=== PATIENT | female | born 1995 | race American Indian/Alaskan Native ===

== ENCOUNTER 2018-07-05 22:39 | Emergency (ER) | payer OTHER ==
[2018-07-05 23:53] LABS: BUN/Creatinine Ratio 19; Basophils # (Auto) 0.1 K/mm3 (0.0-0.1); Blood Urea Nitrogen 13 mg/dL (7-17); Calcium 9.5 mg/dL (8.4-10.2); Eosinophils # (Auto) 0.1 K/mm3 (0.0-0.4); Eosinophils % (Auto) 1.1 % (0.0-4.3); Hematocrit 41.7 % (30.3-42.9); Hemoglobin 14.2 gm/dl (10.1-14.3); Hemolysis Index 25; Lymphocytes % (Auto) 42.3 % (13.4-35.0); Mean Corpuscular HGB Conc 34 % (30-34); Mean Corpuscular Volume 92 fl (79-97); Monocytes # (Auto) 1.1 K/mm3 (0.0-0.8); Monocytes % (Auto) 11.6 % (0.0-7.3); Red Blood Count 4.52 M/mm3 (3.65-5.03); Red Cell Distribution Width 13.9 % (13.2-15.2)
[2018-07-05 23:57] LABS: Bilirubin,Urine NEG (Negative); Blood,Urine SM (Negative); Color,Urine Yellow (Yellow); Mucus,Urine 3+ /HPF; Urobilinogen,Urine < 2.0 mg/dL (<2.0)
[2018-07-06 00:06] LABS: Basophils % (Auto) 0.8 % (0.0-1.8)
[2018-07-06] MEDS ORDERED: NACL 0.9% 1000 ML 1,000 ML IV ONE (00:20)
[2018-07-06] MEDS ORDERED: ZOFRAN IV ONE (00:20)
[2018-07-06] MEDS ORDERED: TORADOL IV ONE (00:20)
--- NOTE | 2018-07-06 00:24 | Emergency Department Report ---
ED Abdominal Pain HPI - General Chief Complaint: Abdominal Pain Stated Complaint: BACK PAIN LOWER RIGHT ABD PAIN NAUSEA Time Seen by Provider: 07/05/18 23:56 Source: family Mode of arrival: Ambulatory Limitations: No Limitations - History of Present Illness Initial Comments: Patient is admitted history of kidney stones who presents for right flank pain 3 days of dysuria and nausea with urinary hesitation there is no fever chills patient denies hematuria no vaginal discharge at this time Guillermo lorenz. Was 06/09/2018 Complaint: abdominal pain, flank pain Onset/Timin -: week(s) Location: R flank Radiation: R flank Migration to: R flank (I) Severity scale (0 -10): 8 Quality: aching Consistency: constant Improves With: nothing Worsens With: other (v isoiding ) Associated Symptoms: nausea ( as follows counters ) - Related Data LMP (females 10-50): 3 weeks Previous Rx's Medication Instructions Recorded Last Taken Type Ciprofloxacin HCl [Cipro] 500 mg PO BID 10 Days #20 tablet 07/06/18 Unknown Rx Tamsulosin HCl [Flomax] 0.4 mg PO DAILY #30 capsule 07/06/18 Unknown Rx Tramadol HCl [Ultram] 50 mg PO Q6H PRN #12 tablet 07/06/18 Unknown Rx Allergies Allergy/AdvReac Type Severity Reaction Status Date / Time No Known Allergies Allergy Unverified 07/05/18 22:57 ED Review of Systems ROS: Stated complaint: BACK PAIN LOWER RIGHT ABD PAIN NAUSEA Other details as noted in HPI Constitutional: denies: chills, fever Eyes: denies: eye pain, eye discharge, vision change ENT: denies: ear pain, throat pain Respiratory: denies: cough, shortness of breath, wheezing Cardiovascular: denies: chest pain, palpitations Endocrine: no symptoms reported Gastrointestinal: denies: abdominal pain, nausea, diarrhea Genitourinary: dysuria (on the left), frequency. denies: urgency, hematuria, discharge Musculoskeletal: back pain. denies: joint swelling, arthralgia Skin: denies: rash, lesions Neurological: as per HPI. denies: headache, weakness, paresthesias Psychiatric: denies: anxiety, depression Hematological/Lymphatic: denies: easy bleeding, easy bruising ED Past Medical Hx - Past Medical History Hx Kidney Stones: Yes Additional medical history: Ovarian Cyst - Surgical History Past Surgical History?: Yes Additional Surgical History: Ovarian cyst - Social History Smoking Status: Never Smoker Substance Use Type: Marijuana - Medications Home Medications: Home Medications Medication Instructions Recorded Confirmed Last Taken Type Ciprofloxacin HCl [Cipro] 500 mg PO BID 10 Days #20 tablet 07/06/18 Unknown Rx Tamsulosin HCl [Flomax] 0.4 mg PO DAILY #30 capsule 07/06/18 Unknown Rx Tramadol HCl [Ultram] 50 mg PO Q6H PRN #12 tablet 07/06/18 Unknown Rx ED Physical Exam - General Limitations: No Limitations (floor is) General appearance: alert, in no apparent distress - Head Head exam: Present: atraumatic, normocephalic - Eye Eye exam: Present: normal appearance, PERRL, EOMI Pupils: Present: normal accommodation - ENT ENT exam: Present: mucous membranes moist - Neck Neck exam: Present: normal inspection, full ROM - Respiratory Respiratory exam: Present: normal lung sounds bilaterally ( N). Absent: respiratory distress, wheezes, stridor - Cardiovascular Cardiovascular Exam: Present: regular rate ( is), normal rhythm, normal heart sounds. Absent: systolic murmur, diastolic murmur, rubs, gallop - GI/Abdominal GI/Abdominal exam: Present: soft, normal bowel sounds. Absent: tenderness, rebound, bruit, hernia - Rectal Rectal exam: Present: deferred - Extremities Exam Extremities exam: Present: normal inspection (is really ) ED Course Vital Signs 07/05/18 07/05/18 22:48 22:58 Temperature 98.0 F 98 F Pulse Rate 67 68 Respiratory 18 18 Rate Blood Pressure 121/75 121/75 O2 Sat by Pulse 98 99 Oximetry ED Medical Decision Making - Lab Data Result diagrams: 07/05/18 23:19 07/05/18 23:19 Labs 07/05/18 07/05/18 07/05/18 23:12 23:19 23:19 WBC 9.4 RBC 4.52 Hgb 14.2 Hct 41.7 MCV 92 MCH 31 MCHC 34 RDW 13.9 Plt Count 180 Lymph % (Auto) 42.3 H Towns % (Auto) 11.6 H Eos % (Auto) 1.1 Baso % (Auto) 0.8 Lymph # 4.0 Towns # 1.1 H Eos # 0.1 Baso # 0.1 Seg Neutrophils % 44.2 Seg Neutrophils # 4.1 Sodium 136 L Potassium 4.2 Chloride 97.2 L Carbon Dioxide 25 Anion Gap 18 BUN 13 Creatinine 0.7 Estimated GFR > 60 BUN/Creatinine Ratio 19 Glucose 84 Calcium 9.5 HCG, Qual Urine Color Yellow Urine Turbidity Slightly-cloudy Urine pH 5.0 Ur Specific [place] 1.035 H Urine Protein 30 mg/dl Urine Glucose (UA) Neg Urine Ketones 20 Urine Blood Sm Urine Nitrite Neg Urine Bilirubin Neg Urine Urobilinogen < 2.0 Ur Leukocyte Esterase Tr Urine WBC (Auto) 1.0 Urine RBC (Auto) 47.0 U Epithel Cells (Auto) 21.0 H Urine Mucus 3+ 07/06/18 00:27 WBC RBC Hgb Hct MCV MCH MCHC RDW Plt Count Lymph % (Auto) Towns % (Auto) Eos % (Auto) Baso % (Auto) Lymph # Towns # Eos # Baso # Seg Neutrophils % Seg Neutrophils # Sodium Potassium Chloride Carbon Dioxide Anion Gap BUN Creatinine Estimated GFR BUN/Creatinine Ratio Glucose Calcium HCG, Qual Negative Urine Color Urine Turbidity Urine pH Ur Specific [place] Urine Protein Urine Glucose (UA) Urine Ketones Urine Blood Urine Nitrite Urine Bilirubin Urine Urobilinogen Ur Leukocyte Esterase Urine WBC (Auto) Urine RBC (Auto) U Epithel Cells (Auto) Urine Mucus - Radiology Data Radiology results: report reviewed, image reviewed Ordering Physician: HUDSON GARCIA NP Date of Service: 07/05/18 Procedure(s): CT abdomen pelvis wo con Accession Number(s): [id number] cc: HUDSON GARCIA NP PROCEDURE: CT ABDOMEN PELVIS WO CON TECHNIQUE: Routine axial imaging was obtained of the abdomen and pelvis without oral or IV contrast. Sagittal and coronal reconstructions were reviewed. HISTORY: abd pain COMPARISONS: None FINDINGS: The lung bases are clear. Pleural fluid is not seen. The liver, gallbladder and biliary tree appear normal. The pancreas and spleen appear normal. The kidneys reveal a nonobstructing 2 mm stone centrally in the left kidney. There is a punctate calcification centrally in the right kidney. There is no evidence of hydronephrosis. The bowel loops are normal in caliber and course. The appendix is not seen with certainty. There is no evidence of any inflammatory process in the right lower quadrant otherwise. In the pelvis the uterus and bladder appear normal. There is a small amount of free fluid posteriorly on the right side in the cul-de-sac. The skeletal structures are well-maintained. IMPRESSION: Nonobstructing very small stones in both kidneys. No evidence of hydronephrosis. Appendix not identified. No evidence of any inflammatory process in the right lower quadrant. Small amount of free fluid in the cul-de-sac right of midline. . This document is electronically signed by Paramjit Robertson MD., July 06 2018 04:23:05 AM ET Transcribed By: RB Dictated By: PARAMJIT ROBERTSON MD Electronically Authenticated By: PARAMJIT ROBERTSON MD Signed Date/Time: 07/06/18 0425 DD/ [id number] TD/TT: 07/06/18 0416 - Medical Decision Making CT abd pelvis multiple small stones no hydronephrosis plan ultram, flomax, cipro, follow up with urology in 2-3 days return to ed if symptoms worsen, pt ve rbalized agreement and understanding of discharge plan. Critical care attestation.: If time is entered above; I have spent that time in minutes in the direct care of this critically ill patient, excluding procedure time. ED Disposition Clinical Impression: Renal stones Disposition: DC-01 TO HOME OR SELFCARE Is pt being admited?: No Does the pt Need Aspirin: No Condition: Stable Instructions: Abdominal Pain (ED) Prescriptions: Ciprofloxacin HCl [Cipro] 500 mg PO BID 10 Days #20 tablet Tamsulosin HCl [Flomax] 0.4 mg PO DAILY #30 capsule Tramadol HCl [Ultram] 50 mg PO Q6H PRN #12 tablet PRN Reason: Pain , Severe (7-10) Referrals: RONNY WEEMS MD [Primary Care Provider] - 3-5 Days ANDREY PIMENTEL MD [Staff Physician] - 3-5 Days Forms: Work/School Release Form(ED) Time of Disposition: 04:52
[2018-07-06 01:46] LABS: Platelet Count 180 K/mm3 (140-440)
--- NOTE | 2018-07-06 04:25 | Cat Scan Report ---
PROCEDURE: CT ABDOMEN PELVIS WO CON TECHNIQUE: Routine axial imaging was obtained of the abdomen and pelvis without oral or IV contrast. Sagittal and coronal reconstructions were reviewed. HISTORY: abd pain COMPARISONS: None FINDINGS: The lung bases are clear. Pleural fluid is not seen. The liver, gallbladder and biliary tree appear normal. The pancreas and spleen appear normal. The kid neys reveal a nonobstructing 2 mm stone centrally in the left kidney. There is a punctate calcificati on centrally in the right kidney. There is no evidence of hydronephrosis. The bowel loops are normal in caliber and course. The appendix is not seen with certainty. There is no evidence of any inflammat ory process in the right lower quadrant otherwise. In the pelvis the uterus and bladder appear normal . There is a small amount of free fluid posteriorly on the right side in the cul-de-sac. The skeletal structures are well-maintained. IMPRESSION: Nonobstructing very small stones in both kidneys. No evidence of hydronephrosis. Appendix not identified. No evidence of any inflammatory process in the right lower quadrant. Small amount of free fluid in the cul-de-sac right of midline. . This document is electronically signed by Cameron Robertson MD., July 06 2018 04:23:05 AM ET
[2018-07-06] MEDS ORDERED: TORADOL ONE (05:04)
[2018-07-06] MEDS ORDERED: TORADOL IM ONE (05:07)
[2018-07-06 05:09] VITALS: BP 122/73
== END 2018-07-06 05:09 | disposition home or self-care (01) ==
LOC: ED 22:39
DX: N20.0 Calculus of kidney (principal); F12.10 Cannabis abuse, uncomplicated
CPT/HCPCS: 36415; 74176; 80048; 81001; 84703; 85025; 96361; 96372; 96374; 96375; 99284; J1885; J2405; J7030